=== PATIENT | male | born 1965 | race Caucasian/White ===

== ENCOUNTER 2020-05-18 20:11 | Emergency (ER) | payer SELFPAY ==
[~2020-05-18] VITALS: Ht 172.7 cm; Wt 88.6 kg
--- NOTE | 2020-05-18 20:27 | PHYS DOC ---
Past History Past Medical History: No Pertinent History Alcohol Use: None Drug Use: Marijuana Adult General HPI HPI Patient is a 55-year-old male presenting via EMS for intoxication. Patient was called by bystanders when him in female accomplice were noted "acting different ". On arrival by EMS, patient appeared to be acutely intoxicated, he reported to smoking "a wild" which was a left over split of what he thinks is marijuana. Also admits to " may be took more sleeping pills from the gas station than I sh ould have" prior to arrival. States he did not do this in attempt to harm himself, states he was just tired and trying to hang out with his female friend. EMS offered transportation to both individuals but only patient excepted the offer. In route, patient was found to be grossly hypertensive with blood pressure reading >200/100 without any other abnormalities. On arrival, patient has no complaints besides feeling tired. No headache, vision changes, no chest pain, no shortness of breath, no cough, no abdominal pain, no changes in bladder or bowel function, no motor or sensory function deficits, no neurologic deficits, no known COVID-19 contact Review of Systems Review of Systems Fourteen body systems of review of systems have been reviewed. See HPI for pertinent positives and negative responses, other swain all other systems are negative, non-pertinent or non-contributory Physical Exam Physical Exam Constitutional: Well developed, well nourished, no acute distress, non-toxic appearance. No obvious signs of trauma HENT: Normocephalic, atraumatic, bilateral external ears normal, oropharynx moist, no oral exudates, nose normal. Eyes: PERRLA, EOMI, conjunctiva normal, no discharge. Neck: Normal range of motion, no tenderness, supple, no stridor. No nuchal rigidity, negative Kernig and Brudzinski Cardiovascular: Heart rate regular, sinus rhythm, no murmurs rubs or gallops Lungs & Thorax: Bilateral breath sounds clear to auscultation Abdomen: Bowel sounds normal, soft, no tenderness, no masses, no pulsatile masses. Nonsurgical abdomen, no peritoneal signs Skin: Warm, dry, no erythema, no rash. Back: No tenderness, no CVA tenderness. Extremities: No tenderness, no cyanosis, no clubbing, ROM intact, no edema. Neurologic: Alert and oriented X 3, all nerves II through XII intact, normal motor & sensory function, no focal deficits noted. Unremarkable gait Psychologic: Affect normal, judgement normal, mood normal. Current Patient Data Vital Signs Vital Signs Date Time Temp Pulse Resp B/P (MAP) Pulse Ox O2 Delivery O2 Flow Rate FiO2 05/18/20 22:14 78 18 175/99 (124) 05/18/20 21:42 70 177/119 05/18/20 21:02 87 175/100 05/18/20 20:37 74 196/127 05/18/20 20:27 97.0 85 18 196/127 (150) 96 Room Air Lab Results Laboratory Tests Test 05/18/20 20:20 05/18/20 21:05 White Blood Count 10.7 x10^3/uL Red Blood Count 5.52 x10^6/uL Hemoglobin 16.8 g/dL Hematocrit 48.8 % Mean Corpuscular Volume 89 fL Mean Corpuscular Hemoglobin 31 pg Mean Corpuscular Hemoglobin Concent 35 g/dL Red Cell Distribution Width 13.0 % Platelet Count 222 x10^3/uL Neutrophils (%) (Auto) 74 % Lymphocytes (%) (Auto) 15 % Monocytes (%) (Auto) 7 % Eosinophils (%) (Auto) 3 % Basophils (%) (Auto) 1 % Neutrophils # (Auto) 8.0 x10^3uL Lymphocytes # (Auto) 1.6 x10^3/uL Monocytes # (Auto) 0.7 x10^3/uL Eosinophils # (Auto) 0.3 x10^3/uL Basophils # (Auto) 0.1 x10^3/uL Sodium Level 135 mmol/L Potassium Level 3.4 mmol/L Chloride Level 99 mmol/L Carbon Dioxide Level 27 mmol/L Anion Gap 9 Blood Urea Nitrogen 12 mg/dL Creatinine 1.4 mg/dL Estimated GFR (Cockcroft-Gault) 52.6 Glucose Level 116 mg/dL Calcium Level 8.9 mg/dL Troponin I Quantitative < 0.017 ng/mL [id number] Natriuretic Peptide 1342 pg/mL Urine Collection Type Unknown Urine Color Yellow Urine Clarity Clear Urine pH 6.5 Urine Specific [place] 1.025 Urine Protein 30 mg/dl Urine Glucose (UA) Neg mg/dL Urine Ketones (Stick) Neg mg/dL Urine Blood Neg Urine Nitrite Neg Urine Bilirubin Neg Urine Urobilinogen Dipstick 0.2 mg/dL Urine Leukocyte Esterase Neg Urine RBC 0 /HPF Urine WBC 0 /HPF Urine Bacteria 0 /HPF Urine Opiates Screen Neg Urine Methadone Screen Neg Urine Barbiturates Neg Urine Phencyclidine Screen Neg Urine Amphetamine/Methamphetamine Neg Urine Benzodiazepines Screen Neg Urine Cocaine Screen Neg Urine Cannabinoids Screen Pos Urine Ethyl Alcohol Neg Current Medications Medications (Trade) Dose Ordered Sig/Otoniel Route PRN Reason Start Time Stop Time Status Last Admin Dose Admin Aspirin (Aspirin Chewable) 324 mg 1X ONCE PO 05/18/20 20:30 05/18/20 20:33 DC 05/18/20 20:36 Nitroglycerin (Nitrostat) 0.4 mg PRN Q5MIN PRN SL CHEST PAIN 05/18/20 20:45 05/18/20 22:15 DC 05/18/20 21:42 Sodium Chloride 1,000 ml @ 1,000 mls/hr 1X ONCE IV 05/18/20 21:45 05/18/20 22:15 DC 05/18/20 21:42 EKG EKG EKG ordered and interpreted by myself at 2032 hrs. as sinus rhythm at 73 bpm, unremarkable intervals, no axis deviation, T wave inversions noted to inferior leads II, 3, aVF in addition to lateral leads I, V5, and V6. No STEMI. No prior EKG to compare to Repeat EKG performed and interpreted by myself at 2135 hrs. after improvement in patient's blood pressure and interpreted as sinus rhythm at 72 bpm, unremarkable intervals, no axis deviation, ongoing T wave inversions noted to inferior leads II, 3, aVF in addition to lateral leads I, V5 and V6 as noted above, no STEMI Radiology/Procedures Radiology/Procedures [] Heart Score HEART Score for Chest Pain: HEART Score for Chest Pain Response (Comments) Value History Slighlty/Non-Suspicious 0 ECG Nonspecific Repolarizatio 1 Age >45 - < 65 1 Risk Factors 1 or 2 Risk Factors 1 Troponin < Normal Limit 0 Total 3 Risk Factors: Risk Factors: DM, Current or recent (<one month) smoker, HTN, HLP, family history of CAD, obesity. Risk Scores: Risk Factors: DM, Current or recent (<one month) smoker, HTN, HLP, family history of CAD, obesity. Course & Med Decision Making Course & Med Decision Making Discussed with the patient all findings and diagnostic testing. I discussed most likely diagnosis of hypoactive delirium secondary to marijuana and sleeping pill use that improved with ER observation and intervention. Also disclosed findings of impaired renal function of unknown chronicity in addition to concerning EKG strip for numerous T wave inversions with no apparent cause, patient has no chest pain or other concerning symptoms. With all of this in mind, I did recommend patient be admitted for further cardiac observation but he declined. As such, I stressed need for close outpatient follow-up to review today's ER visit. Strict return precautions were also discussed at length with good understanding by patient. Patient voiced understanding and agreement with the plan. Patient knows to come back for repeat evaluation if concerning signs or symptoms present prior to outpatient follow-up. Hemodynamically stable, ambulatory and well-appearing at time of disposition. Dragon Disclaimer Dragon Disclaimer This electronic medical record was generated, in whole or in part, using a voice recognition dictation system. Departure Departure: Impression: Primary Impression: Acute hypoactive delirium due to multiple etiologies Additional Impression: T wave inversion on electrocardiogram Disposition: 01 DC HOME SELF CARE/HOMELESS Condition: IMPROVED Patient Instructions: Form - Blood Pressure Record Sheet, How to Take Your Blood Pressure, [id number] Additional Instructions: You were seen for decreased mentation which is likely due to your current cannabis and sleeping pill use. Your workup did not show any acute abnormalities today, but does not indicate that you do not have underlying car diovascular disease. Your blood pressure was elevated, you had concerning T wave inversions on your EKG and you had impaired kidney function as discussed, it is unclear if these are new or old problems. It was recommended that you stay for cardiac observation but you deferred, as such you do need to follow up with your primary doctor for further evaluation and treatment. You should return to the ED if you develop worsening chest pain, shortness of breath, fever, abnormal sweating, leg swelling, or any other new or concerning symptoms. It was a pleasure to take care of you and I wish you the best going forward Problem Qualifiers ALTHEA MACDONALD DO May 18, 2020 20:27
[2020-05-18] MEDS ORDERED: ASPIRIN CHEWABLE 81 MG TABLET. PO ONE (20:30)
--- NOTE | 2020-05-18 20:32 | EKG ---
[address] [address] Test Date: 2020-05-18 Test Time: 20:28:23 Pat Name: KARL BOYER Department: Room: Gender: M Structural Steel Painter: : 1965 Requested By: ALTHEA MACDONALD Order Number: [id number] Reading MD: Measurements Intervals [place] Rate: 73 P: 64 ND: 140 QRS: 59 QRSD: 90 T: 210 QT: 376 QTc: 418 Interpretive Statements SINUS RHYTHM VENTRICULAR PREMATURE COMPLEX(ES) ST & T ABNORMALITY, CONSIDER ANTEROLATERAL ISCHEMIA OR LEFT VENTRICULAR STRAIN INFEROLATERAL ISCHEMIA OR LEFT VENTRICULAR STRAIN ABNORMAL ECG RI6.02 No previous ECG available for comparison
[2020-05-18] MEDS: NITROGLYCERIN SUBLINGUAL 0.4 MG BOTTLE OF 25. SL PRN ×3 (20:37→21:42)
[2020-05-18 21:08] LABS: BASO # 0.1 x10^3/uL (0.0-0.2); BASO % 1 % (0-3); EOS # 0.3 x10^3/uL (0.0-0.7); EOS % 3 % (0-3); HEMATOCRIT 48.8 % (39.0-53.0); HEMOGLOBIN 16.8 g/dL (13.0-17.5); LYMPH # 1.6 x10^3/uL (1.0-4.8); LYMPH % 15 % (24-48); MEAN CORPUSCULAR HEMOGLOBIN 31 pg (25-35); MEAN CORPUSCULAR HGB CONC 35 g/dL (31-37); MEAN CORPUSCULAR VOLUME 89 fL (79-100); MONO # 0.7 x10^3/uL (0.0-1.1); MONO % 7 % (0-9); NEUT % 74 % (31-73); PLATELET COUNT 222 x10^3/uL (140-400); RED BLOOD COUNT 5.52 x10^6/uL (4.30-5.70); WHITE BLOOD COUNT 10.7 x10^3/uL (4.0-11.0)
[2020-05-18 21:18] LABS: CALCIUM 8.9 mg/dL (8.5-10.1); CREATININE 1.4 mg/dL (0.7-1.3); GFR 52.6; POTASSIUM 3.4 mmol/L (3.5-5.1)
[2020-05-18 21:37] LABS: BARBITURATES NEG (NEG); BENZODIAZEPINES NEG (NEG); CANNABINOIDS POS (NEG); COCAINE NEG (NEG); METHADONE NEG (NEG); OPIATES NEG (NEG); PHENCYCLIDINE NEG (NEG)
[2020-05-18 21:41] LABS: AMPHETAMINE/METHAMPHETAMINE NEG (NEG)
[2020-05-18] MEDS ORDERED: IV NORMAL SALINE 1,000ML 1,000 ML IV ONE (21:45)
[2020-05-18 21:52] LABS: BACTERIA,URINE 0 /HPF (0-FEW); BILIRUBIN,URINE NEG (NEG); CLARITY,URINE CLEAR; COLOR,URINE YELLOW; GLUCOSE,URINE NEG (NEG); NITRITE,URINE NEG (NEG); RBC,URINE 0 /HPF (0-2); UROBILINOGEN,URINE 0.2 mg/dL (0.2 mg/dL); WBC,URINE 0 /HPF (0-4)
[2020-05-18 22:14] VITALS: BP 175/99
--- NOTE | 2020-05-18 22:16 | EKG ---
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
== END 2020-05-18 22:15 | disposition home or self-care (01) ==
LOC: ER 20:11
DX: F05 Delirium due to known physiological condition (principal); R94.31 Abnormal electrocardiogram [ECG] [EKG]; F12.10 Cannabis abuse, uncomplicated
CPT/HCPCS: 36415; 80048; 80307; 81001; 83880; 84484; 85025; 93005; 99285; J7030